=== PATIENT | female | born 1935 | race Caucasian/White ===

== ENCOUNTER 2018-04-02 06:03 | Day surgery (SDC) | payer BC, MEDICARE ==
--- NOTE | 2018-04-01 15:31 | HP ---
- Patient Scheduled date of Surgery: 04/02/18 Affected Eye: Right Chief Complaint (Indication for surgery): Decreased vision affecting ADLs - Ocular History Other Eye History: Other (crs, hordeolum) - Medical History Illnesses: Cardiac Disorders (Chest pain, SOB, [place], Valve disease), Other (s/p mi and stent, afib) Current Medications: metoprolol ramipril coumadin Allergies/Adverse Reactions: Allergies Allergy/AdvReac Type Severity Reaction Status Date / Time No Known Allergies Allergy Verified 04/01/18 15:28 Ocular Examination - Best Corrected Visual Acuity Distance: Right eye: 20/60 Distance: Left eye: 20/40 - External/Slit Lamp Examination Abnormalities: none - Intraocular Pressure Intraocular Pressure - Right eye: 12 Intraocular Pressure-Left eye: 12 - Lens Lens: 2+ Ns 3+ cortical - Vitreous/Retina Vitreous/Retina: c:d 0.35 m/v/p wnl - Special Examination M - Right eye: +4.00-2.00 x 170 M - Left eye: +3.75-1.75 x 025 K - Right eye: 44.25/44.75 x090 K - Left eye: 43.75/45 x 125 AL - Right eye: 22.03 AL - Left eye: 22.23 IOL ba.0 auooto IOL sulcus: 23.0 mn60ac IOL AC: 20.0 MTA 4UO - Impression Impression: Cataract Right Eye - Plan Plan: Phacoemulsification and cataract extraction - IOL Right eye Post-hospital care will be provided in office on: 04/03/18
[2018-04-01 17:37] VITALS: BMI 25.7
[2018-04-02] MEDS ORDERED: PHENYLEPHRINE 2.5% OPHTH SOLN 15 ML BOTTLE ONE (06:32)
[2018-04-02] MEDS ORDERED: CIPROFLOXACIN HCL 0.3% OPHTH 2.5ML BOTTLE ONE (06:32)
[2018-04-02] MEDS ORDERED: TROPICAMIDE 1% OPHTH SOLN 15 ML BOTTLE ONE (06:32)
[2018-04-02] MEDS ORDERED: KETOROLAC TROMETHAMINE 0.5% EYE DROP 1 DROP DROPS ONE (06:37)
[2018-04-02] MEDS: PHENYLEPHRINE 2.5% OPHTH SOLN 15 ML BOTTLE OP SCH ×3 (06:42→07:07)
[2018-04-02] MEDS: TROPICAMIDE 1% OPHTH SOLN 15 ML BOTTLE OP SCH ×3 (06:42→07:08)
[2018-04-02] MEDS: KETOROLAC TROMETHAMINE 0.5% EYE DROP 1 DROP DROPS OP SCH ×3 (06:42→07:07)
[2018-04-02] MEDS: CIPROFLOXACIN HCL 0.3% OPHTH 2.5ML BOTTLE OP SCH ×3 (06:42→07:07)
--- NOTE | 2018-04-02 07:16 | HP ---
History & Physical Update - History History: No Change - Physical Physical: No Change - Assessment Assessment: No Change - Plan Plan: No Change (H and P from Dr. Sena reviewed from 03/23/18 no changes)
[2018-04-02] MEDS ORDERED: TOBRAMYCIN/DEXAMETHASONE OPHTH. OINTMENT 1 TUBE ONE (07:24)
[2018-04-02] MEDS ORDERED: LIDOCAINE HCL/PF 1% SDV 5ML VIAL ONE (07:24)
[2018-04-02] MEDS ORDERED: MIDAZOLAM HCL 2 MG/2 ML SINGLE DOSE VIAL ONE (07:24)
[2018-04-02] MEDS ORDERED: CHONDROITIN SU A/HYALUR SOD 1 KIT ONE (07:25)
[2018-04-02] MEDS ORDERED: BSS (NA/CA/MG/K) BALANCED SALT SOLUTION OPHTH SOLN 15 ML BOTTLE ONE (07:29)
[2018-04-02] MEDS ORDERED: POVIDONE-IODINE 5% OPHTHALMIC PREP 30 ML SOLUTION ONE (07:29)
[2018-04-02] MEDS ORDERED: LIDOCAINE HCL 2% JELLY (5 ML/TUBE) ONE (07:31)
[2018-04-02] MEDS ORDERED: LIDOCAINE HCL 2% JELLY (5 ML/TUBE) OD ONE (07:50)
[2018-04-02] MEDS ORDERED: POVIDONE-IODINE 5% OPHTHALMIC PREP 30 ML SOLUTION OD ONE (07:53)
[2018-04-02] MEDS ORDERED: BSS (NA/CA/MG/K) BALANCED SALT SOLUTION OPHTH SOLN 15 ML BOTTLE OD ONE (07:59)
[2018-04-02] MEDS ORDERED: CHONDROITIN SU A/HYALUR SOD 1 KIT IO ONE (07:59)
[2018-04-02] MEDS ORDERED: LIDOCAINE HCL 1% PRESERVATIVE FREE - 30ML VIAL IO ONE (07:59)
[2018-04-02] MEDS ORDERED: EPINEPHrine/PF 1 MG/1 ML (1:1,000) AMPULE SQ ONE (08:07)
[2018-04-02] MEDS ORDERED: TOBRAMYCIN/DEXAMETHASONE OPHTH. OINTMENT 1 TUBE TP ONE (08:21)
--- NOTE | 2018-04-02 08:26 | OP ---
Ophthalmology Operative Note Pre-Operative Diagnosis: Cataract Affected Eye: Right Operation: Phacoemulsification and cataract extraction with PCIOL Findings: NS cataract Post-Operative Diagnosis: Same as Pre-op Inshore Undersea Warfare Officer: None Anesthesiologist: Alan Patten Anesthesia: Topical Specimens Removed: none Estimated blood loss: <1 cc Drains & Tubes with Location: none Operative Report Dictated: Yes
--- NOTE | 2018-04-02 09:28 | OP ---
DATE OF OPERATION: DATE OF DICTATION: 04/02/2018 PREOPERATIVE DIAGNOSIS: Nuclear sclerotic cataract, right eye. POSTOPERATIVE DIAGNOSIS: Nuclear sclerotic cataract, right eye. PROCEDURE: Phacoemulsification and cataract extraction with insertion of posterior chamber intraocular lens, right eye. SURGEON: Santiago Anderson MD COMMERCIAL TELLER: None. ANESTHESIA: Topical. ANESTHESIOLOGIST: Alan Patten MD OPERATIVE PROCEDURE: Following satisfactory intravenous sedation the patient received 2% viscous lidocaine gel and was then prepped and draped in the usual sterile fashion so as to expose only the right eye. Ophthalmic Betadine was instilled into the inferior fornix. The lashes were taped out of the surgical field. An eyelid speculum was placed into the right eye. A paracentesis was made in the superior temporal clear cornea at the limbus. Nonpreserved lidocaine 1%, 0.5 mL, was injected into the anterior chamber. Viscoelastic material was instilled into the anterior chamber via the paracentesis. A 2.4-mm keratome was then used to create the main incision in temporal clear cornea at the limbus. A continuous curvilinear capsulorrhexis was performed using a cystotome and Utrata forceps. Hydrodissection of the lens cortex was performed using BSS on a cannula until the nucleus was noted to be freely rotating. The phacoemulsification tip was then inserted via the main wound and used to sculpt 2 perpendicular grooves into the lens nucleus. The nucleus was cracked into 4 quadrants. Each quadrant was lifted out of the capsule into the iris plane and individually phacoemulsified. The remaining cortical material was then aspirated using the irrigation and aspiration port. The capsular bag was inflated using Provisc and a preloaded AcrySof lens model [id number], power +24.0 diopters was injected into the capsule bag and centered using a Sinskey hook. The residual viscoelastic material was removed from the anterior chamber using irrigation and aspiration. The wound edges were hydrated using BSS. The wound was tested for leakage and was found to be watertight. TobraDex ointment was placed into the eye and the speculum was removed from the eye and the eyelid was closed. A sterile dressing and shield were placed over the eye and the patient was transferred to the recovery room in stable condition and told to follow up in 1 day. SANTIAGO ANDERSON M.D. [id number]
[2018-04-02 10:13] VITALS: BP 127/70; PULSE 69; TEMP 98.4
[2018-04-02] MEDS ORDERED: ACETAMINOPHEN 325 MG TABLET (FP) PO PRN (15:24)
== END 2018-04-02 09:30 | disposition home or self-care (01) ==
LOC: JASU-SURG 06:03
PROVIDERS: ATTEND Ophthalmology
PROC: 08RJ3JZ Replacement of Right Lens with Synthetic Substitute, Percutaneous Approach (ICD-10-PCS; principal; 2018-04-02 07:30)
DX: H25.11 Age-related nuclear cataract, right eye (principal)

== ENCOUNTER 2018-04-09 07:40 | Day surgery (SDC) | payer MEDICARE ==
--- NOTE | 2018-04-07 17:53 | HP ---
- Patient Scheduled date of Surgery: 04/09/18 Scheduled Surgical Procedure: Phacoemulsification and cataract extraction with PCIOL Affected Eye: Left Chief Complaint (Indication for surgery): Decreased vision affecting ADLs - Ocular History Other Eye History: Other (Crs and hordeolum) Eye Medications: vigamox tid Os Previous Eye Surgery: s/p ce/pciol OD - Medical History Illnesses: Cardiac Disorders (Chest pain, SOB, [place], Valve disease) (s/p stent) Current Medications: Ambulatory Orders Furosemide 40 mg PO DAILY 04/01/18 Metoprolol Tartrate 12.5 mg PO DAILY 04/01/18 Ramipril 2.5 mg PO DAILY 04/01/18 Warfarin Na [Coumadin] 5 mg PO DAILY 04/01/18 Allergies/Adverse Reactions: Allergies Allergy/AdvReac Type Severity Reaction Status Date / Time No Known Allergies Allergy Verified 04/02/18 06:23 Ocular Examination - Best Corrected Visual Acuity Distance: Right eye: 20/25 Distance: Left eye: 20/40 - External/Slit Lamp Examination Abnormalities: none - Intraocular Pressure Intraocular Pressure - Right eye: 12 Intraocular Pressure-Left eye: 12 - Lens Lens: 2+ NS 2+ cortical change - Vitreous/Retina Vitreous/Retina: C:D 0.35 m/v/p wnl - Special Examination M - Right eye: +0.75-1.00 x 180 M - Left eye: +3.75 -1.75 x 025 K - Right eye: 44.25/44.75 K - Left eye: 43.75/45 x 105 AL - Left eye: 22.23 IOL bag: +24.5 Auooto IOL sulcus: +23.5 MN60AC IOL AC: +20.5 MTA 4uo - Impression Impression: Cataract Left Eye - Plan Plan: Phacoemulsification and cataract extraction - IOL Left eye Post-hospital care will be provided in office on: 04/10/18
[2018-04-08 12:51] VITALS: BMI 25.7
--- NOTE | 2018-04-09 07:20 | HP ---
History & Physical Update - History History: No Change - Physical Physical: No Change - Assessment Assessment: No Change - Plan Plan: No Change (no change from Dr. Chasity Martinez from 03/23/18)
[~2018-04-09 07:40] MED LIST: ACETAMINOPHEN 325 MG TABLET (FP) PO PRN; CIPROFLOXACIN HCL 0.3% OPHTH 2.5ML BOTTLE OP SCH; KETOROLAC TROMETHAMINE 0.5% EYE DROP 1 DROP DROPS OP SCH; PHENYLEPHRINE 2.5% OPHTH SOLN 15 ML BOTTLE OP SCH; TOBRAMYCIN/DEXAMETHASONE OPHTH. OINTMENT 1 TUBE TP ONE; TROPICAMIDE 1% OPHTH SOLN 15 ML BOTTLE OP SCH
[2018-04-09] MEDS ORDERED: CIPROFLOXACIN HCL 0.3% OPHTH 2.5ML BOTTLE ONE (08:03)
[2018-04-09] MEDS ORDERED: TROPICAMIDE 1% OPHTH SOLN 15 ML BOTTLE ONE (08:03)
[2018-04-09] MEDS ORDERED: PHENYLEPHRINE 2.5% OPHTH SOLN 15 ML BOTTLE ONE (08:03)
[2018-04-09] MEDS ORDERED: KETOROLAC TROMETHAMINE 0.5% EYE DROP 1 DROP DROPS ONE (08:12)
[2018-04-09 08:16] VITALS: TEMP 97.3
[2018-04-09] MEDS ORDERED: CIPROFLOXACIN HCL 0.3% OPHTH 2.5ML BOTTLE OS ONE ×3 (08:20→08:40)
[2018-04-09] MEDS ORDERED: PHENYLEPHRINE 2.5% OPHTH SOLN 15 ML BOTTLE OS ONE ×3 (08:20→08:40)
[2018-04-09] MEDS ORDERED: TROPICAMIDE 1% OPHTH SOLN 15 ML BOTTLE OS ONE ×3 (08:20→08:40)
[2018-04-09] MEDS ORDERED: KETOROLAC TROMETHAMINE 0.5% EYE DROP 1 DROP DROPS OS ONE ×3 (08:20→08:40)
[2018-04-09] MEDS ORDERED: MIDAZOLAM HCL 2 MG/2 ML SINGLE DOSE VIAL ONE (08:38)
[2018-04-09] MEDS ORDERED: TETRACAINE 0.5% OPHTH SOLN 2 ML BOTTLE OS ONE (09:59)
[2018-04-09] MEDS ORDERED: POVIDONE-IODINE 5% OPHTHALMIC PREP 30 ML SOLUTION OS ONE (10:00)
[2018-04-09] MEDS ORDERED: BSS (NA/CA/MG/K) BALANCED SALT SOLUTION OPHTH SOLN 15 ML BOTTLE OS ONE (10:05)
[2018-04-09] MEDS ORDERED: LIDOCAINE HCL 1% PRESERVATIVE FREE - 30ML VIAL IO ONE (10:05)
[2018-04-09] MEDS ORDERED: CHONDROITIN SU A/HYALUR SOD 1 KIT IO ONE (10:05)
[2018-04-09] MEDS ORDERED: EPINEPHrine/PF 1 MG/1 ML (1:1,000) AMPULE SQ ONE (10:13)
[2018-04-09] MEDS ORDERED: TOBRAMYCIN/DEXAMETHASONE OPHTH. OINTMENT 1 TUBE TP ONE (10:29)
--- NOTE | 2018-04-09 10:34 | OP ---
Ophthalmology Operative Note Pre-Operative Diagnosis: Cataract Affected Eye: Left Operation: Phacoemulsification and cataract extraction with PCIOL Findings: Ns cataract left eye Post-Operative Diagnosis: Same as Pre-op Professor Of Food Biochemistry: None Anesthesiologist: Delmer Finley Anesthesia: Topical Specimens Removed: none Estimated blood loss: <1 cc Drains & Tubes with Location: none Operative Report Dictated: Yes
--- NOTE | 2018-04-09 11:28 | OP ---
DATE OF OPERATION: DATE OF DICTATION: 04/09/2018 PREOPERATIVE DIAGNOSIS: Nuclear sclerotic cataract, left eye. POSTOPERATIVE DIAGNOSIS: Nuclear sclerotic cataract, left eye. PROCEDURE: Phacoemulsification and cataract extraction with insertion of posterior chamber intraocular lens, left eye. SURGEON: Santiago Anderson MD SAFETY GLASS INSTALLER: None. ANESTHESIA: Topical. ANESTHESIOLOGIST: Delmer iFnley MD OPERATIVE PROCEDURE: The patient received tetracaine eye drops and then was gently sedated and prepped and draped in the usual sterile fashion so as to expose only the left eye. Ophthalmic Betadine was instilled into the inferior fornix. The lashes were taped out of the surgical field. An eyelid speculum was placed into the left eye. A paracentesis was made in inferior temporal clear cornea at the limbus. Nonpreserved lidocaine 1%, 0.5 mL, was injected into the anterior chamber. Viscoelastic material was instilled into the anterior chamber via the paracentesis. A 2.4-mm keratome was then used to create the main incision in temporal clear cornea at the limbus. A continuous curvilinear capsulorrhexis was performed using a cystotome and Utrata forceps. Hydrodissection of the lens cortex was performed using BSS on a cannula until the nucleus was noted to be freely rotating. The phacoemulsification tip was inserted via the main wound and used to sculpt 2 perpendicular grooves into the lens nucleus. The nucleus was cracked into 4 quadrants. Each quadrant was lifted out of the capsule into the iris plane and individually phacoemulsified. The remaining cortical material was then aspirated using the irrigation and aspiration port. The capsular bag was inflated using Provisc and a preloaded AcrySof lens model [id number], power +24.5 diopters, was injected into the capsular bag and centered using a Sinskey hook. The residual viscoelastic material was removed from the anterior chamber using irrigation and aspiration. The wound edges were hydrated using BSS. The wound was tested for leakage. It was found to be watertight. TobraDex ointment was placed into the eye and the speculum was removed from the eye and the eyelid was closed. A sterile dressing and shield were placed over the eye and the patient was transferred to the recovery room in stable condition. Told to follow up in 1 day. SANTIAGO ANDERSON M.D. [id number]
[2018-04-09 11:59] VITALS: BP 109/85; PULSE 82
[2018-04-09] MEDS ORDERED: ONDANSETRON 4 MG/2 ML VIAL IVPUSH PRN (13:01)
[2018-04-09] MEDS ORDERED: LACTATED RINGERS SOLUTION 1,000 ML IV SCH (13:15)
== END 2018-04-09 12:30 | disposition home or self-care (01) ==
LOC: JASU-SURG 07:40
PROVIDERS: ATTEND Ophthalmology
PROC: 08RK3JZ Replacement of Left Lens with Synthetic Substitute, Percutaneous Approach (ICD-10-PCS; principal; 2018-04-09 09:30)
DX: H25.11 Age-related nuclear cataract, right eye (principal)